=== PATIENT | female | born 1950 | race Caucasian/White ===

== ENCOUNTER → 2019-04-29 15:46 | Outpatient (CLI) | payer MEDICARE, SELFPAY ==
--- NOTE | ~2019-04-29 | MM_ITS ---
EXAMINATION: MM screening [facility] BI w rob HISTORY: Screening mammogram TECHNIQUE: Craniocaudal and mediolateral oblique 3-D tomosynthesis images were obtained and synthetic 2-D images were generated. CAD analysis was submitted and interpreted. COMPARISON: 04/11/2018, 03/22/2017, 02/25/2016, 02/14/2016 BREAST PARENCHYMAL COMPOSITION: There are scattered areas of fibroglandular density. FINDINGS: RIGHT BREAST: A low-density masses present in the middle third of the upper breast best appreciated 4 cm from the nipple on mediolateral oblique tomosynthesis image 19/43.. LEFT BREAST: There is no evidence of suspicious mass, calcification, or architectural distortion to s uggest malignancy. There has been no significant interval change. IMPRESSION: 1. Right breast mass. 2. Additional mammographic views and possible breast ultrasound are recommended. BI-RADS Category 0: Incomplete: Needs additional imaging evaluation. Reviewed, dictated and finalized at location A. ICULUM SUPERVISOR IMPRESSION: 1. Right breast mass. 2. Additional mammographic views and possible breast ultrasound are recommended . BI-RADS Category 0: Incomplete: Needs additional imaging evaluation.
== END ==
PROVIDERS: Visit Provider Nurse Practitioner
DX: Z12.31 Encounter for screening mammogram for malignant neoplasm of breast (principal); N63.0 Unspecified lump in unspecified breast
CPT/HCPCS: 77063; 77067

== ENCOUNTER → 2019-05-20 13:40 | Outpatient (CLI) | payer MEDICARE, SELFPAY ==
--- NOTE | ~2019-05-20 | MMUS_ITS ---
EXAMINATION: MM diagnostic mammo unilat RT, US breast RT limited HISTORY: Follow-up right breast mass TECHNIQUE: Additional 3-D tomosynthesis images of the right breast were performed and synthetic 2-D i mages were generated. CAD analysis was submitted and interpreted. High resolution right breast ultras ound was performed. COMPARISON: Comparison to multiple prior studies sequentially, with oldest reviewed study dated 01/24. FINDINGS: MAMMOGRAPHIC FINDINGS: The breasts are heterogenously dense, which may obscure small masses. There are no suspicious masses, calcifications or architectural distortion in either breast to suggest malignancy. ULTRASOUND: Right breast ultrasound: At 12:00, 2 cm from the nipple, there is a 5 mm cyst. At 2:00, 1 cm from the nipple, there is a 4 mm benign intramammary lymph node. No suspicious masses to suggest malignancy. IMPRESSION: 1. No mammographic or sonographic evidence for malignancy in the right breast. 2. Routine yearly screening mammogram and regular clinical breast examination are recommended. BI-RADS Category 2: Benign finding(s). Reviewed, dictated and finalized at location A. NG ADVISOR IMPRESSION: 1. No mammographic or sonographic evidence for malignancy in the right breast. 2. Routine yearly screening mammogram and regular clinical breast examination a re recommended. BI-RADS Category 2: Benign finding(s).
== END ==
PROVIDERS: Visit Provider Obstetrics & Gynecology Gynecology
DX: R92.8 Other abnormal and inconclusive findings on diagnostic imaging of breast (principal)
CPT/HCPCS: 76642; 77065

== ENCOUNTER → 2020-05-21 13:07 | Outpatient (CLI) | payer MEDICARE, SELFPAY ==
--- NOTE | ~2020-05-21 | MM_ITS ---
EXAMINATION: MM screening [facility] BI w rob HISTORY: Screening mammogram TECHNIQUE: Craniocaudal and mediolateral oblique 3-D tomosynthesis images were obtained and synthetic 2-D images were generated. CAD analysis was submitted and interpreted. COMPARISON: 05/20/2019, 04/29/2019, 04/11/2018, 03/22/2017 BREAST PARENCHYMAL COMPOSITION: The breasts are heterogeneously dense, which may obscure small masses . FINDINGS: A right breast masses 12:00 location, previously characterized as a cyst, and demonstrates slight interval enlargement. There is no evidence of suspicious mass, calcification, or architectural distortion to suggest malignancy in either breast. There has been no suspicious interval change. IMPRESSION: 1. No mammographic evidence of malignancy. 2. Recommend routine screening mammography in one year. BI-RADS Category 2: Benign finding(s). Reviewed, dictated and finalized at location A. L OFFICE MANAGER
== END ==
PROVIDERS: Visit Provider Nurse Practitioner
DX: Z12.31 Encounter for screening mammogram for malignant neoplasm of breast (principal)
CPT/HCPCS: 77063; 77067

== ENCOUNTER → 2021-05-23 13:19 | Outpatient (CLI) | payer MEDICARE, SELFPAY ==
--- NOTE | ~2021-05-23 | MM_ITS ---
EXAMINATION: MM screening [facility] BI w rob HISTORY: Screening mammogram TECHNIQUE: Craniocaudal and mediolateral oblique 3-D tomosynthesis images were obtained and synthetic 2-D images were generated. CAD analysis was submitted and interpreted. COMPARISON: 05/21/2020, 05/20/2019, 04/29/2019 BREAST PARENCHYMAL COMPOSITION: There are scattered areas of fibroglandular density. FINDINGS: There is no evidence of suspicious mass, calcification, or architectural distortion to sugg est malignancy in either breast. There has been no suspicious interval change. IMPRESSION: 1. No mammographic evidence of malignancy. 2. Recommend routine screening mammography in one year. BI-RADS Category 1: Negative Reviewed, dictated and finalized at location A. STIAN SCIENCE READER
== END ==
PROVIDERS: PCP Obstetrics & Gynecology Gynecology; Visit Provider Nurse Practitioner
DX: Z12.31 Encounter for screening mammogram for malignant neoplasm of breast (principal)
CPT/HCPCS: 77063; 77067

== ENCOUNTER → 2021-08-02 12:25 | Outpatient (CLI) | payer MEDICARE, SELFPAY ==
--- NOTE | ~2021-08-02 | DEXA_ITS ---
Bone Density Report Name: CHELA ARGUELLO Age: 71 Sex: Female Ethnicity: White Date of : 1950 Indication: postmenopausal; screening for osteoporosis; Referring Provider: Skyla, Flaquita Study: Bone densitometry was performed. Exam Date: August 02, 2021 Accession number: [id number] Bone Density: Region BMD T-score Z-score Classification AP Spine (L1-L4) 0.975 -0.7 1.5 Normal Femoral Neck (Left) 0.722 -1.1 0.7 Osteopenia Total Hip (Left) 0.872 -0.6 0.9 Normal Femoral Neck (Right) 0.728 -1.1 0.7 Osteopenia Total Hip (Right) 0.889 -0.4 1.1 Normal Total Hip Mean 0.881 -0.5 1.0 Normal World Health Organization criteria for BMD impression classify patients as: Normal (T-score at or above -1.0), Osteopenia (T-score between -1.0 and -2.5), or Osteoporosis (T-score at or below -2.5). 10-year Fracture Risk(1): Major Osteoporotic Fracture 7.5% Hip Fracture 0.9% Reported Risk Factors: [place] (), Neck BMD=0.728, BMI=18.9 (1) FRAX(R) Version 3.08. Fracture probability calculated for an untreated patient. Fracture probability may be lower if the patient has received treatment. Previous Exams: Region Exam Age BMD T-score BMD Change BMD Change Date g/cm2 vs Baseline vs Previous AP Spine(L1-L4) 08/02/2021 71 0.975 -0.7 -0.006 0.020 04/11/2018 67 0.955 -0.8 -0.026* -0.009 02/10/2015 64 0.964 -0.8 -0.017 -0.003 12/25/2011 61 0.967 -0.7 -0.014 -0.011 11/16/2008 58 0.978 -0.6 -0.003 -0.003 11/12/2006 56 0.981 -0.6 Total Hip(Left) 08/02/2021 71 0.872 -0.6 -0.027 -0.017 04/11/2018 67 0.888 -0.4 -0.010 0.028* 02/10/2015 64 0.861 -0.7 -0.038* -0.030* 12/25/2011 61 0.891 -0.4 -0.008 0.013 11/16/2008 58 0.877 -0.5 -0.022 -0.022 11/12/2006 56 0.899 -0.4 Total Hip(Right) 08/02/2021 71 0.889 -0.4 -0.030* 0.007 04/11/2018 67 0.883 -0.5 -0.037* 0.014 02/10/2015 64 0.868 -0.6 -0.051* -0.027 12/25/2011 61 0.895 -0.4 -0.025 -0.015 11/16/2008 58 0.910 -0.3 -0.009 -0.009 11/12/2006 56 0.919 -0.2 *Denotes significance at 95% confidence level, LSC for AP Spine = 0.022 g/cm2, LSC for Total Hip = 0.027 g/cm2 Clinical Information Provided by Patient: Has
== END ==
PROVIDERS: PCP Nurse Practitioner Family; Visit Provider Nurse Practitioner
DX: M85.88 Other specified disorders of bone density and structure, other site (principal)
CPT/HCPCS: 77080

== ENCOUNTER 2022-02-28 01:22 | Day surgery (SDC) | payer MEDICARE, SELFPAY ==
[2022-02-14 10:46] VITALS: BMI 18.6
--- NOTE | 2022-02-28 08:03 | P.PNAN_ITS ---
Anes - Initial Pre Proc Eval Procedure: Operation Date: 02/28/22 10:45 Proposed Procedures p Screening Colonoscopy - Hardy Del Rosario MD Date/Time: 02/28/22 08:03 Surgeon: Hardy Del Rosario MD Pre Op Diagnosis: neoplasm screening Patient Data Age: 71 Gender: F Height: 1.52 m Weight: 43.25 kg Allergies Allergy/AdvReac Type Severity Reaction Status Date / Time Penicillins Allergy Rash Verified 02/28/22 09:37 Home Medications Medication Instructions Recorded Confirmed Type sodium sul 1.479 gram-potas ch See Rx Instructions PO PER PKG DIR 08/15/21 Rx 0.188 gram-magnes sul 0.225 gram #24 tabs tablet (Sutab) estradiol-norethindrone acet 0.5 1 tablet PO DAILY 02/14/22 02/14/22 History mg-0.1 mg tablet levothyroxine 88 mcg tablet 88 mcg PO DAILY 02/14/22 02/14/22 History (Synthroid) oxybutynin chloride 10 mg 10 mg PO HS 02/14/22 02/14/22 History tablet,extended release 24 hr Patient hx anesthesia problems: none Family hx anesthesia problems: none Results Review: All pre-operative results and documents have been reviewed as part of the pre- operative evaluation. [facility] Past Medical History Medical History (Updated 02/28/22 @ 10:08 by Hardy Del Rosario MD) Hypothyroidism Pacemaker Social History Social History Smoking status: Never smoker Alcohol intake: current Substance use: never Substance use type: does not use Living arrangements: with family Spiritual care concerns: No Anes - Eval Final PreProcedure Day of Procedure 02/28/22 08:03 Patient weight: normal Heart: regular rate and rhythm Lungs: clear to auscultation Airway: Mallampati scale class II Neurological: alert and oriented Last oral intake: >/= 8 hours ASA classification: III Emergent: no Anesthetic plan: proceed Anesthesia type and monitoring: general GIVS and standard monitoring Results Review: All pre-operative results and documents have been reviewed as part of the pre- operative evaluation. Informed Consent: The patient's anesthetic plan and its attendant risks and benefits were discussed with the patient/family/POA. Questions were solicited and answers provided to the satisfaction of the patient/family/POA.
[2022-02-28 09:35] VITALS: BP 147/62; PULSE 78; RESP 18; TEMP 36.1; O2SAT 96
[2022-02-28] MEDS: LACTATED RINGERS 1,000 ML 150 ML IV CONT (09:48)
--- NOTE | 2022-02-28 10:07 | PM.HPGS ---
History of Present Illness History of Present Illness Consent: Risks, benefits, and alternatives have been discussed and questions answered. Patient agrees to proceed with procedure. Chief complaint: neoplasm screening Narrative: Bria Milan is a 71 year old female Presents for screening colonoscopy. Patient's current weight appetite bowel movements are normal. Patient denies abdominal pain. She has had no bleeding. Family history noncontributory. Patient does have a past history of cardiac pacemaker insertion. Review of Systems Review of Systems: Review systems noncontributory. [facility] Past Medical History Medical History (Updated 02/28/22 @ 10:08 by Hardy Del Rosario MD) Hypothyroidism Pacemaker Social History Social History Smoking status: Never smoker Alcohol intake: current Substance use: never Substance use type: does not use Living arrangements: with family Spiritual care concerns: No Meds Home Medications and Allergies Home Medications Medication Instructions Recorded Confirmed Type sodium sul 1.479 gram-potas ch See Rx Instructions PO PER PKG DIR 08/15/21 Rx 0.188 gram-magnes sul 0.225 gram #24 tabs tablet (Sutab) estradiol-norethindrone acet 0.5 1 tablet PO DAILY 02/14/22 02/14/22 History mg-0.1 mg tablet levothyroxine 88 mcg tablet 88 mcg PO DAILY 02/14/22 02/14/22 History (Synthroid) oxybutynin chloride 10 mg 10 mg PO HS 02/14/22 02/14/22 History tablet,extended release 24 hr Allergies Allergy/AdvReac Type Severity Reaction Status Date / Time Penicillins Allergy Rash Verified 02/28/22 09:37 Vital Signs Vital Signs - 24 hr 02/28/22 09:35 Temperature 97 F L Pulse Rate 78 Respiratory Rate 18 Blood Pressure 147/62 H Pulse Oximetry 96 Oxygen Delivery Room Air Exam Narrative: Physical exam reveals patient be alert. Vital signs stable. HEENT exam is unremarkable. Patient is anicteric. Lungs are clear to auscultation and percussion. Heart is without murmur or extra sounds. Abdomen bowel sounds present soft nontender with no organomegaly. Digital external rectal exam is normal. Assessment and Plan Assessment and plan (1) Encounter for screening colonoscopy: Code(s): Z12.11 - Encounter for screening for malignant neoplasm of colon Status: Acute Assessment and Plan: Patient presents today for screening colonoscopy. She appears to be at average risk for colon polyps.
[2022-02-28 11:04] VITALS: BP 144/71; PULSE 75; RESP 13; O2SAT 75
[2022-02-28 11:14] VITALS: BP 147/71; PULSE 77; RESP 19; O2SAT 77
[2022-02-28 11:24] VITALS: BP 165/81; PULSE 69; RESP 14; O2SAT 100
== END 2022-02-28 11:26 | disposition home or self-care (01) ==
PROVIDERS: PCP Nurse Practitioner Family; Visit Provider Internal Medicine Gastroenterology
PROC: 0DJD8ZZ Inspection of Lower Intestinal Tract, Via Natural or Artificial Opening Endoscopic (ICD-10-PCS; CPT 45378; principal; 2022-02-28 10:45)
DX: Z12.11 Encounter for screening for malignant neoplasm of colon (principal); K64.8 Other hemorrhoids; K57.30 Diverticulosis of large intestine without perforation or abscess without bleeding; E03.9 Hypothyroidism, unspecified; Z95.0 Presence of cardiac pacemaker
CPT/HCPCS: G0121; J2001; J2704; J7120

== ENCOUNTER → 2022-07-10 13:35 | Outpatient (CLI) | payer MEDICARE, SELFPAY ==
--- NOTE | ~2022-07-10 | MM_ITS ---
EXAMINATION: MM screening [facility] BI w rob HISTORY: Screening mammogram TECHNIQUE: Craniocaudal and mediolateral oblique 3-D tomosynthesis images were obtained and synthetic 2-D images were generated. CAD analysis was submitted and interpreted. COMPARISON: May 23, 2021, May 21, 2020 bilateral screening mammogram examinations BREAST PARENCHYMAL COMPOSITION: The breasts are heterogeneously dense, which may obscure small masses . FINDINGS: There is no evidence of suspicious mass, calcification, or architectural distortion to sugg est malignancy in either breast. There has been no suspicious interval change. IMPRESSION: 1. No mammographic evidence of malignancy. 2. Recommend routine screening mammography in one year. BI-RADS Category 1: Negative Reviewed, dictated and finalized at location B.
== END ==
PROVIDERS: PCP Nurse Practitioner; Visit Provider Nurse Practitioner
DX: Z12.31 Encounter for screening mammogram for malignant neoplasm of breast (principal)
CPT/HCPCS: 77063; 77067

== ENCOUNTER 2023-08-09 10:44 | Outpatient (CLI) | payer MEDICARE, SELFPAY ==
--- NOTE | ~2023-08-09 | MM_ITS ---
EXAMINATION: MM screening [facility] BI w rob HISTORY: Screening mammogram TECHNIQUE: Craniocaudal and mediolateral oblique 3-D tomosynthesis images were obtained and synthetic 2-D images were generated. CAD analysis was submitted and interpreted. COMPARISON: July 10, 2022, May 23, 2021 lateral screening mammogram examinations BREAST PARENCHYMAL COMPOSITION: The breasts are heterogeneously dense, which may obscure small masses . FINDINGS: There is no evidence of suspicious mass, calcification, or architectural distortion to sugg est malignancy in either breast. There has been no suspicious interval change. IMPRESSION: 1. No mammographic evidence of malignancy. 2. Recommend routine screening mammography in one year. BI-RADS Category 1: Negative Reviewed, dictated and finalized at location B.
== END 2023-08-09 10:45 ==
PROVIDERS: PCP Obstetrics & Gynecology Gynecology; Visit Provider Obstetrics & Gynecology Gynecology
DX: Z12.31 Encounter for screening mammogram for malignant neoplasm of breast (principal)
CPT/HCPCS: 77063; 77067

== ENCOUNTER 2024-10-16 14:02 | Outpatient (CLI) | payer MEDICARE, SELFPAY ==
--- NOTE | ~2024-10-16 | MM_ITS ---
EXAMINATION: MM screening [facility] BI w rob HISTORY: Screening TECHNIQUE: Craniocaudal and mediolateral oblique 3-D tomosynthesis images were obtained and synthetic 2-D images were generated. CAD analysis was submitted and interpreted. COMPARISON: Comparison to multiple prior studies sequentially, with oldest reviewed study dated 2019. BREAST PARENCHYMAL COMPOSITION: The breasts are heterogeneously dense, which may obscure small masses . FINDINGS: There is no evidence of suspicious mass, calcification, or architectural distortion to sug gest malignancy in either breast. Radiopaque pacemaker battery overlies and partially obscures the le ft axilla. IMPRESSION: 1. No mammographic evidence of malignancy. 2. Recommend routine screening mammography in one year. BI-RADS Category 1: Negative Reviewed, dictated and finalized at location B.
== END 2024-10-16 14:03 | disposition home or self-care (01) ==
LOC: MICIMG 14:03
PROVIDERS: PCP Obstetrics & Gynecology Gynecology; Visit Provider Obstetrics & Gynecology Gynecology
DX: Z12.31 Encounter for screening mammogram for malignant neoplasm of breast (principal)
CPT/HCPCS: 77063; 77067

== ENCOUNTER 2024-11-28 11:00 | Outpatient (CLI) | payer MEDICARE, SELFPAY ==
--- NOTE | ~2024-11-28 | DEXA_ITS ---
Bone Density Report Name: CHELA ARGUELLO Age: 74 Sex: Female Ethnicity: White Date of : 1950 Indication: postmenopausal; screening for osteoporosis; Referring Provider: ALAN WALLACE Study: Bone densitometry was performed. Exam Date: November 28, 2024 Accession number: [id number] Bone Density: Region BMD T-score Z-score Classification AP Spine(L1-L4) 0.951 -0.9 1.4 Normal Femoral Neck (Left) 0.675 -1.6 0.4 Osteopenia Total Hip (Left) 0.808 -1.1 0.6 Osteopenia Femoral Neck (Right) 0.702 -1.3 0.7 Osteopenia Total Hip (Right) 0.795 -1.2 0.5 Osteopenia Total Hip Mean 0.801 -1.2 0.6 Osteopenia World Health Organization criteria for BMD impression classify patients as: Normal (T-score at or above -1.0), Osteopenia (T-score between -1.0 and -2.5), or Osteoporosis (T-score at or below -2.5). 10-year Fracture Risk(1): Major Osteoporotic Fracture 8.8% Hip Fracture 1.8% Reported Risk Factors: [place] (), Neck BMD=0.675, BMI=18.0 (1) FRAX(R) Version 3.08. Fracture probability calculated for an untreated patient. Fracture probability may be lower if the patient has received treatment. Previous Exams: -- Region Exam Age BMD T-score BMD Change BMD Change Date g/cm2 vs Baseline vs Previous -- AP Spine (L1-L4) 11/28/2024 74 0.951 -0.9 -3.0%* -2.5%* 08/02/2021 71 0.975 -0.7 -0.6% 2.1% 04/11/2018 67 0.955 -0.8 -2.7%* -1.0% 02/10/2015 64 0.964 -0.8 -1.7% -0.3% 12/25/2011 61 0.967 -0.7 -1.4% -1.1% 11/16/2008 58 0.978 -0.6 -0.3% -0.3% 11/12/2006 56 0.981 -0.6 Total Hip(Left) 11/28/2024 74 0.808 -1.1 -10.1%* -7.3%* 08/02/2021 71 0.872 -0.6 -3.0% -1.9% 04/11/2018 67 0.888 -0.4 -1.2% 3.2%* 02/10/2015 64 0.861 -0.7 -4.2%* -3.4%* 12/25/2011 61 0.891 -0.4 -0.9% 1.5% 11/16/2008 58 0.877 -0.5 -2.4% -2.4% 11/12/2006 56 0.899 -0.4 Total Hip(Right) 11/28/2024 74 0.795 -1.2 -13.5%* -10.6%* 08/02/2021 71 0.889 -0.4 -3.3%* 0.8% 04/11/2018 67 0.883 -0.5 -4.0%* 1.7% 02/10/2015 64 0.868 -0.6 -5.6%* -3.0% 12/25/2011 61 0.895 -0.4 -2.7% -1.7% 11/16/2008 58 0.910 -0.3 -1.0% -1.0% 11/12/2006 56 0.919 -0.2 -- *Denotes significance at 95% confidence level, LSC for AP Spine = 0.022 g/cm2, LSC for Total Hip = 0.027 g/cm2 Clinical Information Provided by Patient: Has used the following medications: Calcium Patient maximum height was 60 Menopause Age: 56 No regular weight bearing exercise Does not regularly consume dairy products Drinks caffeinated beverages Onset of menses at age 14 Number of children 2 Impression: The patient has low bone mass, based on the Left Femoral Neck T-score. The patient has an estimated ten-year risk of hip fracture of 1.8% and an estimated ten-year risk of major fracture of 8.8%, based on the WHO FRAX algorithm. The BMD for the AP Spine (L1-L4) decreased, changing by -2.5% since the last DXA exam. The BMD for the Total Hip(Left) decreased, changing by -7.3% since the last DXA exam. The BMD for the Total Hip(Right) decreased, changing by -10.6% since the last DXA exam. Discussion: BONE DENSITY IS LOW AT ONE OR MORE SKELETAL SITES. This patient's lowest T-score is low at one or more skeletal sites. It meets the World Health Organization's (WHO) criteria for ?low bone mass? (T-score between -1.0 and -2.5). The patient's 10-year risk of fracture as calculated by FRAX is less than the threshold where pharmacological therapy is recommended by the National Osteoporosis Foundation (NOF). However, all treatment decisions require clinical judgment and consideration of individual patient factors, including patient preferences, comorbidities, previous drug use, risk factors not captured in the FRAX model (e.g., frailty, falls, vitamin D deficiency, increased bone turnover, interval significant decline in bone density) and possible under or overestimation of fracture risk by FRAX. The patient should follow a healthful lifestyle (good nutrition with adequate calcium and vitamin D, and appropriate weight-bearing exercise). Follow-Up: Consider repeating this study in 2 years to reassess this patient's status, or sooner if there is some new clinical indication. Reported by: JAVED on 11/28/2024 11:27:00 AM. Reviewed, dictated and finalized at location A.
== END 2024-11-28 11:01 | disposition home or self-care (01) ==
LOC: MICIMG 11:01
PROVIDERS: PCP Obstetrics & Gynecology Gynecology; Visit Provider Obstetrics & Gynecology Gynecology
DX: Z78.0 Asymptomatic menopausal state (principal); M85.852 Other specified disorders of bone density and structure, left thigh; M85.851 Other specified disorders of bone density and structure, right thigh
CPT/HCPCS: 77080